=== PATIENT | male | born 1980 | race African-American/Black ===

== ENCOUNTER 2018-10-16 16:36 | Emergency (ER) | payer SELFPAY ==
[~2018-10-16] VITALS: Ht 177.8 cm; Wt 100.0 kg
[2018-10-16 16:44] VITALS: Ht 177.8 cm; Wt 100.0 kg
[2018-10-16 19:07] LABS: BASOPHILS 0.2 % (0-2); EOSINOPHILS 6.6 % (0-7); HEMATOCRIT 42.6 % (42.0-54.0); HEMOGLOBIN 15.2 g/dL (13.5-17.5); LYMPHOCYTES 16.3 % (15-50); MCH 30.9 pg (26.0-34.0); MCHC 35.7 g/dL (31.0-37.0); MCV 86.6 fL (80.0-100.0); MEAN PLATELET VOLUME 9.9 fL (7.4-10.4); MONOCYTES 17.3 % (2-11); NEUTROPHILS 58.6 % (40-80); RBC 4.92 10x6/uL (4.20-6.10); RDW 11.3 % (11.5-14.5)
[2018-10-16 19:08] LABS: PLATELET COUNT 312 10x3/uL (130-400)
[2018-10-16 19:26] LABS: ALBUMIN 2.6 g/dL (3.4-5.0); ALKALINE PHOSPHATASE 52 U/L (46-116); ALT (SGPT) 43 U/L (10-68); BILIRUBIN - TOTAL 0.39 mg/dL (0.2-1.3); CALC OSMOLALITY 263 mosm/kg (275-300); CALCIUM 8.8 mg/dL (8.5-10.1); CARBON DIOXIDE 25.8 mmol/L (21.0-32.0); CHLORIDE - SERUM 98 mmol/L (98-107); CREATININE - SERUM 0.8 mg/dL (0.6-1.3); GLUCOSE 81 mg/dL (74-106); POTASSIUM - SERUM 4.3 mmol/L (3.5-5.1); SODIUM 133 mmol/L (136-145); UREA NITROGEN 11 mg/dL (7-18); eGFR NON AFRICAN AMERICAN > 90 mL/min (90-120)
[2018-10-16 20:23] LABS: TROPONIN-I < 0.017 ng/mL (0.000-0.060)
[2018-10-16 20:24] LABS: PRO BNP 8 pg/mL (0-125)
[2018-10-16] MEDS ORDERED: OMNICEF300 MG PO (21:58)
[2018-10-16] MEDS ORDERED: VENTOLIN HFA18 GM INH (21:58)
[2018-10-16] MEDS ORDERED: ZPAK PO (21:58)
[2018-10-16 22:30] VITALS: BP 120/84
== END 2018-10-16 22:30 | disposition home or self-care (01) ==
LOC: D.ER 16:36
PROVIDERS: Emergency Medicine; Family Medicine
DX: J18.9 Pneumonia, unspecified organism (principal); R09.89 Other specified symptoms and signs involving the circulatory and respiratory systems; F17.200 Nicotine dependence, unspecified, uncomplicated

== ENCOUNTER 2019-03-27 14:10 | Emergency (ER) | payer SELFPAY ==
[~2019-03-27 14:10] MED LIST: OMNICEF300 MG PO; VENTOLIN HFA18 GM INH; ZPAK PO
[2019-03-27 14:36] VITALS: BMI 31.6
[2019-03-27 15:21] LABS: BASOPHILS 0.2 % (0-2); EOSINOPHILS 14.3 % (0-7); HEMATOCRIT 40.1 % (42.0-54.0); HEMOGLOBIN 14.5 g/dL (13.5-17.5); IMMATURE GRANULOCYTES 0.7 % (0-5); LYMPHOCYTES 7.4 % (15-50); MCH 30.7 pg (26.0-34.0); MCHC 36.2 g/dL (31.0-37.0); MEAN PLATELET VOLUME 9.9 fL (7.4-10.4); MONOCYTES 7.6 % (2-11); NEUTROPHILS 69.8 % (40-80); RBC 4.72 10x6/uL (4.20-6.10); RDW 11.4 % (11.5-14.5); WBC 5.8 10x3/uL (4.8-10.8)
[2019-03-27 15:28] LABS: PLATELET COUNT 215 10x3/uL (130-400)
[2019-03-27 15:32] LABS: ALKALINE PHOSPHATASE 71 U/L (46-116); ALT (SGPT) 57 U/L (10-68); BILIRUBIN - TOTAL 0.34 mg/dL (0.2-1.3); CALC OSMOLALITY 273 mosm/kg (275-300); CALCIUM 8.8 mg/dL (8.5-10.1); CARBON DIOXIDE 30.9 mmol/L (21.0-32.0); CHLORIDE - SERUM 100 mmol/L (98-107); CREATININE - SERUM 0.9 mg/dL (0.6-1.3); GLUCOSE 96 mg/dL (74-106); POTASSIUM - SERUM 3.1 mmol/L (3.5-5.1); PROTEIN - SERUM 8.1 g/dL (6.4-8.2); SODIUM 138 mmol/L (136-145); UREA NITROGEN 8 mg/dL (7-18); eGFR NON AFRICAN AMERICAN > 90 mL/min (90-120)
[2019-03-27 16:33] VITALS: BP 122/78
[2019-05-10 12:30] VITALS: BMI 25.2
== END 2019-03-27 16:34 | disposition home or self-care (01) ==
LOC: D.ER 14:10
PROVIDERS: Family Medicine
DX: H10.33 Unspecified acute conjunctivitis, bilateral (principal)

== ENCOUNTER 2019-04-07 18:28 | Emergency (ER) | payer SELFPAY ==
[~2019-04-07] VITALS: Ht 177.8 cm; Wt 100.0 kg
[2019-04-07 18:33] VITALS: Ht 177.8 cm; Wt 100.0 kg
[2019-04-07] MEDS ORDERED: ZYRTEC10 MG PO (21:34)
[2019-04-07] MEDS ORDERED: POLYTRIM EYE DR10 ML EACH EYE (21:34)
[2019-04-07 22:09] VITALS: BP 134/81
== END 2019-04-07 22:11 | disposition home or self-care (01) ==
LOC: D.ER 18:28
DX: J30.9 Allergic rhinitis, unspecified (principal); H10.33 Unspecified acute conjunctivitis, bilateral

== ENCOUNTER 2019-04-28 18:07 | Emergency (ER) | payer SELFPAY ==
[~2019-04-28] VITALS: Ht 177.8 cm; Wt 100.0 kg
[~2019-04-28 18:07] MED LIST changes: +POLYTRIM EYE DR10 ML EACH EYE; +ZYRTEC10 MG PO
[2019-04-28 18:18] VITALS: Ht 177.8 cm; Wt 100.0 kg
[2019-04-28] MEDS ORDERED: PHENERGAN DM SYR5 ML PO (19:47)
[2019-04-28] MEDS ORDERED: VIBRAMYCIN 100100 MG PO (19:47)
[2019-04-28] MEDS ORDERED: VOLTAREN75 MG PO (19:47)
[2019-04-28 20:45] VITALS: BP 136/84
== END 2019-04-28 20:50 | disposition home or self-care (01) ==
LOC: D.ER 18:07
DX: L03.314 Cellulitis of groin (principal); J06.9 Acute upper respiratory infection, unspecified

== ENCOUNTER 2019-05-07 19:18 | Inpatient (IN) | payer MEDICAID ==
[~2019-05-07] VITALS: Ht 177.8 cm; Wt 85.9 kg
[~2019-05-07 19:18] MED LIST changes: +PHENERGAN DM SYR5 ML PO; +VIBRAMYCIN 100100 MG PO; +VOLTAREN75 MG PO
--- NOTE | 2019-05-07 20:00 | NUR ---
PT STATES HE FEEL BETTER AFTER THE UPDRAFT, CALL LIGHT WITHIN REACH, FAMILY AT BEDSIDE. PT IS WITHOUT DISTRESS AT THIS TIME.
[2019-05-07 20:37] LABS: BASOPHILS 0.1 % (0-2); EOSINOPHILS 0.8 % (0-7); HEMOGLOBIN 12.2 g/dL (13.5-17.5); IMMATURE GRANULOCYTES 1.2 % (0-5); LYMPHOCYTES 7.2 % (15-50); MCHC 33.9 g/dL (31.0-37.0); MCV 85.5 fL (80.0-100.0); MEAN PLATELET VOLUME 9.1 fL (7.4-10.4); MONOCYTES 8.3 % (2-11); NEUTROPHILS 82.4 % (40-80); RBC 4.21 10x6/uL (4.20-6.10); RDW 11.8 % (11.5-14.5); WBC 7.6 10x3/uL (4.8-10.8)
[2019-05-07 20:39] LABS: PLATELET COUNT 287 10x3/uL (130-400)
[2019-05-07 20:44] LABS: APTT 34.5 SECONDS (22.8-39.4); INR 1.24 (0.85-1.17)
[2019-05-07 20:45] LABS: PLATELET ESTIMATE NORMAL
[2019-05-07 20:46] LABS: D-DIMER-QUANTITATIVE 1.04 ug/mLFEU (0.20-0.54)
[2019-05-07 21:05] LABS: ALBUMIN 2.3 g/dL (3.4-5.0); ALKALINE PHOSPHATASE 64 U/L (46-116); ALT (SGPT) 56 U/L (10-68); BILIRUBIN - TOTAL 0.44 mg/dL (0.2-1.3); CALC OSMOLALITY 273 mosm/kg (275-300); CALCIUM 8.4 mg/dL (8.5-10.1); CHLORIDE - SERUM 103 mmol/L (98-107); CREATININE - SERUM 0.8 mg/dL (0.6-1.3); GLUCOSE 98 mg/dL (74-106); POTASSIUM - SERUM 4.1 mmol/L (3.5-5.1); SODIUM 137 mmol/L (136-145); UREA NITROGEN 12 mg/dL (7-18); eGFR NON AFRICAN AMERICAN > 90 mL/min (90-120)
[2019-05-07 21:09] LABS: CKMB 0.2 U/L (0.0-3.6); CREATINE KINASE 68 UL (21-232); PRO BNP 34 pg/mL (0-125); TROPONIN-I < 0.017 ng/mL (0.000-0.060)
--- NOTE | 2019-05-07 22:28 | NUR ---
ARIVES VIA STRETCHER BUT AMBULATES TO BED GATE IS STEADY PT UNABLE TO COME OFF OF NONREBREATHER FROM ER STATE HX OF BRONCHITIS BUT NO OTHER ISSUES RESP AT ABOUT 28 BUT DENIES SOB WITH MASK IN PLACE PT SKIN IS WARM AND DRY AND LCTA BOWEL SOUNDS X4 KIMMY BED IS LOW AND LOCKED AND CALL LIGHT HAS BEEN PROVIDED FAMILY IS ALSO WITH PT
--- NOTE | 2019-05-08 01:23 | NUR ---
ADMIT ASSESSMENT COMPLETE. PT RESTING IN BED WITH FAMILY AT BED SIDE. PT ON A NON REBREATHER, STATES THAT ER ATTEMPTED TO TAKE IT OFF BUT HIS NUMBERS WENT UP. WILL SPEAK TO NURSE IN CHARGE OF PT REGARDING NON REBREATHER. PT IS AAO, DENIES ANY WEAKNESS BUT DOES HAVE SOB WHEN MOVING AROUND. PT VERBALIZED UNDERSTANDING TO CALL FOR ASSIST TO PREVENT FALLS. PT HAS LR INFUSING TO RIGHT AC PIV 18 SWAB CAPS PLACED. S1S2 RRR, MONITOR NOTED PT IS [address] PT COUGH AT TIMES, NON PRODUCTIVE RML EXHALE WHEEZE, RLL AND LLL DIMINISHED. PT WILL CALL FOR ASSIST WHEN NEEDED. WILL CPOC
[2019-05-08 01:42] VITALS: BP 126/84; BMI 27.2
[2019-05-08 04:30] VITALS: BP 123/85
[2019-05-08 05:04] LABS: BASOPHILS 0 % (0-2); EOSINOPHILS 0 % (0-7); HEMATOCRIT 34.3 % (42.0-54.0); IMMATURE GRANULOCYTES 1.2 % (0-5); LYMPHOCYTES 9.7 % (15-50); MCH 29.7 pg (26.0-34.0); MCV 84.9 fL (80.0-100.0); MEAN PLATELET VOLUME 9.2 fL (7.4-10.4); MONOCYTES 1.9 % (2-11); NEUTROPHILS 87.2 % (40-80); PLATELET COUNT 302 10x3/uL (130-400); RBC 4.04 10x6/uL (4.20-6.10); RDW 11.7 % (11.5-14.5); WBC 6.8 10x3/uL (4.8-10.8)
[2019-05-08 05:17] LABS: ALKALINE PHOSPHATASE 61 U/L (46-116); ALT (SGPT) 59 U/L (10-68); BILIRUBIN - TOTAL 0.34 mg/dL (0.2-1.3); CALC OSMOLALITY 273 mosm/kg (275-300); CALCIUM 8.5 mg/dL (8.5-10.1); CARBON DIOXIDE 26.4 mmol/L (21.0-32.0); CHLORIDE - SERUM 102 mmol/L (98-107); CREATININE - SERUM 0.6 mg/dL (0.6-1.3); POTASSIUM - SERUM 4.3 mmol/L (3.5-5.1); PROTEIN - SERUM 7.4 g/dL (6.4-8.2); SODIUM 136 mmol/L (136-145); UREA NITROGEN 9 mg/dL (7-18); eGFR NON AFRICAN AMERICAN > 90 mL/min (90-120)
[2019-05-08 05:23] LABS: GLUCOSE 158 mg/dL (74-106)
--- NOTE | 2019-05-08 08:05 | NUR ---
PATIENT IS ALERT AN ORIENTED. HE IS SITTING UP IN BED AND REQUEST A URINAL. HE IS CURRENTLY ORDERED BEDREST. HE HAS A NON REBREATHER ON AND HAS HAD 100%O2 SATURATION. HE MAY NEED TO BE WEANED OFF THE REBREATHER, HOWEVER, I WAS TOLD IN REPORT THAT WHEN THEY TRIED TAKEING HIM OFF THE MASK HIS RESPITATIONS STEADILY INCREASE. WHEN HE IS DONE USING THE URINAL, I WILL COLLECT A URINE SAMPLE FOR LAB.
[2019-05-08 08:06] VITALS: BP 120/79
[2019-05-08 09:19] LABS: APPEARANCE CLEAR (CLEAR); BILIRUBIN NEGATIVE (NEGATIVE); COLOR YELLOW (YELLOW); GLUCOSE NEGATIVE (NEGATIVE); KETONE NEGATIVE (NEGATIVE); NITRITE NEGATIVE (NEGATIVE); PROTEIN NEGATIVE (NEGATIVE); SPECIFIC GRAVITY 1.015 (1.005-1.020); UROBILINOGEN NORMAL (NORMAL)
[2019-05-08 12:26] VITALS: BP 121/84
[2019-05-08 12:28] LABS: % SATURATION 14 % (15-55); IRON 23 ug/dl (35-150); TOTAL IRON BIND CAPACITY 161 ug/dl (260-445); UNSAT IRON BIND CAPACITY 138 ug/dl (150-375)
[2019-05-08 14:26] LABS: UDS - AMPHET NEGATIVE QUAL (NEGATIVE); UDS - BARB NEGATIVE QUAL (NEGATIVE); UDS - BENZO NEGATIVE QUAL (NEGATIVE); UDS - COCAINE NEGATIVE QUAL (NEGATIVE); UDS - OPIATE NEGATIVE QUAL (NEGATIVE); UDS - PCP NEGATIVE QUAL (NEGATIVE); UDS - THC NEGATIVE QUAL (NEGATIVE)
[2019-05-08 15:59] VITALS: BP 120/86
--- NOTE | 2019-05-08 19:52 | NUR ---
EVENING ROUNDS COMPLETED. REPORT RECEIVED. PT SITTING UP IN BED WITH EYES OPEN, RR EVEN AND UNLABORED. BED IN LOW POSITION. NO S/S OF DISTRESS NOTED. OXYGEN IN PLACE AT 12 LITERS BY HF NC. INTRODUCED SELF TO PT. PT DENIES FURTHER NEEDS AT THIS TIME. ORDERED ABX INFUSING THROUGH RT AC PIV. CALL LIGHT IN REACH. WILL CTM.
[2019-05-08 20:00] VITALS: BP 134/88
[2019-05-09] VITALS: BP 137/84
--- NOTE | 2019-05-09 01:55 | NUR ---
I have reviewed this patient and I concur with the Shift Assessment completed by the Licensed Practical Nurse today this shift.
[2019-05-09 04:30] VITALS: BP 113/71
[2019-05-09 06:20] LABS: C-REACTIVE PROTEIN 5.1 mg/dL (0.0-0.9); CALC OSMOLALITY 278 mosm/kg (275-300); CALCIUM 8.6 mg/dL (8.5-10.1); CARBON DIOXIDE 24.3 mmol/L (21.0-32.0); CHLORIDE - SERUM 104 mmol/L (98-107); CREATININE - SERUM 0.7 mg/dL (0.6-1.3); GLUCOSE 165 mg/dL (74-106); LDH 380 U/L (85-227); POTASSIUM - SERUM 3.4 mmol/L (3.5-5.1); SODIUM 138 mmol/L (136-145); UREA NITROGEN 11 mg/dL (7-18); eGFR NON AFRICAN AMERICAN > 90 mL/min (90-120)
[2019-05-09 06:24] LABS: HEMOGLOBIN 12.2 g/dL (13.5-17.5); MCHC 33.9 g/dL (31.0-37.0); MCV 85.5 fL (80.0-100.0); MEAN PLATELET VOLUME 9.6 fL (7.4-10.4); PLATELET COUNT 325 10x3/uL (130-400); RBC 4.21 10x6/uL (4.20-6.10); RDW 11.8 % (11.5-14.5); WBC 20.1 10x3/uL (4.8-10.8)
--- NOTE | 2019-05-09 06:26 | NUR ---
3.4 SERUM POTASSIUM TREATED ORDERED
[2019-05-09 08:00] VITALS: BP 128/92
[2019-05-09 08:22] LABS: LYMPHOCYTES 3 % (15-50); MONOCYTES 4 % (2-11); NEUTROPHILS 90 % (40-80); PLATELET ESTIMATE NORMAL; PLATELET MORPHOLOGY GIANT PLTS PRESENT
[2019-05-09 08:23] LABS: POIKILOCYTOSIS 1+
[2019-05-09 11:50] VITALS: BP 125/72
--- NOTE | 2019-05-09 17:31 | NUR ---
ALERT AND ORIENTED X4. SITTING UP IN BED. OXYMIZER INCREASE TO 12L FOR O2 SAT 90%. DYSPNEA ON EXCERTION. USES URINAL. OOB WITH ASSISTANCE DUE TO BAHENA. DENIES ANY NEEDS AT THIS TIME. CONTINUE PLAN OF CARE AND SAFETY PRECAUTIONS.
--- NOTE | 2019-05-09 19:27 | NUR ---
EVENING ROUNDS COMPLETED. REPORT RECEIVED. PT SITTING UP IN BED WITH EYES OPEN, RR EVEN AND UNLABORED. OXYGEN AT 10 LITERS BY HIGH FLOW NASAL CANNULA. BED IN LOW POSITION. NO S/S OF DISTRESS NOTED. INTRODUCED SELF TO PT. PT DENIES FURTHER NEEDS AT THIS TIME. RAC PIV INFUSING NS ORDERED. CALL LIGHT IN REACH. WILL CTM.
[2019-05-09 20:00] VITALS: BP 124/78
[2019-05-10] VITALS: BP 119/80
--- NOTE | 2019-05-10 00:03 | NUR ---
I have reviewed this patient and I concur with the Shift Assessment completed by the Licensed Practical Nurse today this shift.
--- NOTE | 2019-05-10 02:47 | NUR ---
PT RESTING QUIETLY IN BED WITH EYES CLOSED, RR EVEN AND UNLABORED. BED IN LOW POSITION. NO S/S OF DISTRESS NOTED. CALL LIGHT IN REACH. WILL CTM.
[2019-05-10 04:30] VITALS: BP 109/78
[2019-05-10 06:44] LABS: BASOPHILS 0 % (0-2); EOSINOPHILS 1.2 % (0-7); HEMATOCRIT 36.1 % (42.0-54.0); HEMOGLOBIN 12.3 g/dL (13.5-17.5); IMMATURE GRANULOCYTES 0.7 % (0-5); LYMPHOCYTES 12.4 % (15-50); MCH 29.1 pg (26.0-34.0); MCHC 34.1 g/dL (31.0-37.0); MCV 85.3 fL (80.0-100.0); MEAN PLATELET VOLUME 9.5 fL (7.4-10.4); MONOCYTES 12.2 % (2-11); NEUTROPHILS 73.5 % (40-80); PLATELET COUNT 324 10x3/uL (130-400); RBC 4.23 10x6/uL (4.20-6.10)
[2019-05-10 06:47] LABS: WBC 8.2 10x3/uL (4.8-10.8)
[2019-05-10 06:48] LABS: CALCIUM 8.5 mg/dL (8.5-10.1); CARBON DIOXIDE 26.2 mmol/L (21.0-32.0); CHLORIDE - SERUM 105 mmol/L (98-107); CREATININE - SERUM 0.8 mg/dL (0.6-1.3); POTASSIUM - SERUM 3.6 mmol/L (3.5-5.1); SODIUM 140 mmol/L (136-145); VANCOMYCIN - TROUGH 3.7 ug/mL (10.0-20.0); eGFR NON AFRICAN AMERICAN > 90 mL/min (90-120)
[2019-05-10 06:49] LABS: CALC OSMOLALITY 275 mosm/kg (275-300); GLUCOSE 86 mg/dL (74-106); UREA NITROGEN 8 mg/dL (7-18)
[2019-05-10 08:55] VITALS: BP 112/78
[2019-05-10 12:30] VITALS: Ht 177.8 cm; Wt 85.9 kg
--- NOTE | 2019-05-10 17:07 | NUR ---
ALERT AND ORIENTED X4. RESTING IN BED. CONSENTS FOR BRONCH SIGNED ON CHART. O2 SAT 92% @ 11L HFNC. FAMILY AT BEDSIDE. DENIES ANY NEEDS AT THIS TIME. CONTINUE PLAN OF CARE AND SAFETY PRECAUTIONS.
[2019-05-10 18:15] VITALS: BP 129/91
--- NOTE | 2019-05-10 19:14 | NUR ---
AWKE AND ALERT IN BED SKIN WARM AND DRY BOWEL SOUNDS X4 AND LUNGS ARE VERY DEMINISHED IN ALL BASES HIGH FLOW AT TEN LITERS IS IN PLACE SPOKE TO PT ABOUT PROCEDURE IN AM AND BEING NPO AFTER MIDNIGHT
[2019-05-10 20:00] VITALS: BP 135/75
[2019-05-11] VITALS (7 sets, daily range): BP systolic 106–133; BP diastolic 72–88
[2019-05-11 05:11] LABS: BASOPHILS 0.1 % (0-2); EOSINOPHILS 4.5 % (0-7); HEMATOCRIT 36.1 % (42.0-54.0); HEMOGLOBIN 12.6 g/dL (13.5-17.5); IMMATURE GRANULOCYTES 1.5 % (0-5); LYMPHOCYTES 10.6 % (15-50); MCH 29.6 pg (26.0-34.0); MCHC 34.9 g/dL (31.0-37.0); MCV 84.7 fL (80.0-100.0); MEAN PLATELET VOLUME 9.2 fL (7.4-10.4); MONOCYTES 10.6 % (2-11); NEUTROPHILS 72.7 % (40-80); PLATELET COUNT 319 10x3/uL (130-400); RBC 4.26 10x6/uL (4.20-6.10)
--- NOTE | 2019-05-11 05:12 | NUR ---
I have reviewed this patient and I concur with the Shift Assessment completed by the Licensed Practical Nurse today this shift.
[2019-05-11 05:36] LABS: CALC OSMOLALITY 275 mosm/kg (275-300); CALCIUM 8.3 mg/dL (8.5-10.1); CARBON DIOXIDE 26.7 mmol/L (21.0-32.0); CHLORIDE - SERUM 103 mmol/L (98-107); CREATININE - SERUM 0.7 mg/dL (0.6-1.3); GLUCOSE 85 mg/dL (74-106); MAGNESIUM - SERUM 1.9 mg/dL (1.8-2.4); PHOSPHOROUS 3.8 mg/dL (2.5-4.9); SODIUM 139 mmol/L (136-145); UREA NITROGEN 9 mg/dL (7-18); eGFR NON AFRICAN AMERICAN > 90 mL/min (90-120)
--- NOTE | 2019-05-11 09:57 | NUR ---
ALERT AND ORIENTED X4. TAKEN TO PROCEDURE VIA BED.
[2019-05-11 11:10] LABS: ANA REFLEX - DIRECT Negative (Negative)
--- NOTE | 2019-05-11 11:25 | NUR ---
ALERT AND ORIENTED X4. ARRIVE BACK TO ROOM VIA BED FROM PROCEDURE. O2 SAT 73 ON HFNC. NONREBREATHER MASK ON O2 SAT 92%. BP-115/79, HR-109, R-20. REMAIN NPO FOR NEXT 2 HOURS. CONTINUE PLAN OF CARE AND SAFETY PRECAUTIONS.
[2019-05-11 14:09] LABS: HIV AB INTERPRETATION HIV-1 Positive (())
--- NOTE | 2019-05-11 17:34 | NUR ---
ALERT AND ORIENTED X4. RESTING IN BED. O2 94% WITH HFNC 15L. TRANSFER TO ICU PER . CALLED TO ICU. TRANSFER TO 2302.
--- NOTE | 2019-05-11 17:49 | MORECARE ---
CASE MANAGEMENT DISCHARGE SUMMARY PATIENT: MARTHA LEES UNIT: [id number] ADM DATE: 05/07/19 AGE: 38 : 80 SEX: M ROOM/BED: D.6467 AUTHOR: SALINA,DOC PHYSICIAN: REFERRING PHYSICIAN: JUAN ZULUAGA MD DATE OF SERVICE: 05/11/19 Discharge Plan Patient Name: MARTHA LEES Facility: [facility]:[place] : 1980 Planned Disposition: Home Anticipated Discharge Date: Discharge Date: Expected LOS: Initial Reviewer: [email or web address] Initial Review Date: 05/11/2019 Generated: 05/11/19 6:49 pm Comments DCP- Discharge Planning Updated by [email or web address]: Winter Martinez on 05/11/19 4:[address] Patient Name: MARTHA LEES Admission Status: ER Accout number: [id number] Admission Date: 05-07-2019 : 1980 Admission Diagnosis: Attending: JUAN ZULUAGA Current LOS: 4 Anticipated DC Date: Planned Disposition: Home Primary Insurance: MEDICAID [place] PENDING Discharge Planning Comments: CM met with patient and his mother (Parag) at bedside after explaining CM role and obtaining verbal consent. Patient lives at home with his mother and plans to return there upon discharge. Patient feels this would be a safe discharge. CM discussed availability / needs of home health and medical equipment. Patient denies any discharge needs at this time. Patient states he will have his family drive him home upon discharge. CM will continue to follow and assist as needed with discharge planning / needs. Account Support Analyst: Winter Martinez DCPIA - Discharge Planning Initial Assessment Updated by [email or web address]: Winter Martinez on 05/11/19 5:45 pm * Is the patient Alert and Oriented? Yes * How many steps to enter\exit or inside your home? * PCP NO PCP * Pharmacy [facility] * Preadmission Environment Home with Family * ADLs Independent * Equipment None * List name and contact numbers for known caregivers / representatives who currently or will assist patient after discharge: PARAG LEES - [phone] * Verbal permission to speak to the caregivers and representatives has been obtained from the patient. Yes * Community resources currently utilized None * Additional services required to return to the preadmission environment? No * Can the patient safely return to the preadmission environment? Yes * Has this patient been hospitalized within the prior 30 days at any hospital? No Patient Name: MARTHA LEES Page [phone] at 1749 All edits/amendments must be made on the electronic document DICTATION DATE: 05/11/191748 REMEDIAL READING TEACHER: CYNTHIA 05/11/191748 RPT#: [id number] DC DATE: STATUS: ADM IN [facility] [address] [place] [address] END OF REPORT
--- NOTE | 2019-05-11 18:00 | NUR ---
PT RECEIVED VIA BED. FAMILY AT BEDSIDE GIVEN UDPATE. PT DENIES NEEDS. GIVEN WATER FOR COMFORT VSS WILL CONTINUE TO MONITOR
--- NOTE | 2019-05-11 19:00 | NUR ---
REPORT RECEIVED, SHIFT ASSESSMENT COMPLETE SEE FLOW SHEET, PT AAOx4, DENIES PAIN OR NEEDS, SINUS TACH ON CM, OTHER VSS, RT AC PIV INFUSING MEDS PER MAR/ORDERS, WILL CONTINUE TO ASSESS
--- NOTE | 2019-05-11 21:00 | NUR ---
CALLED ICU, UPDATE GIVEN, NO NEW ORDERS RECEIVED
--- NOTE | 2019-05-11 23:00 | NUR ---
REASSESSMENT COMPLETE SEE FLOW SHEET FOR FURTHER, PT DENIES NEEDS OR PAIN, VSS, WILL CONTINUE TO MONITOR
[2019-05-12] VITALS (19 sets, daily range): BP systolic 102–127; BP diastolic 70–85
[2019-05-12 03:28] LABS: BASOPHILS 0.1 % (0-2); EOSINOPHILS 4.7 % (0-7); HEMATOCRIT 33.4 % (42.0-54.0); HEMOGLOBIN 11.6 g/dL (13.5-17.5); IMMATURE GRANULOCYTES 2.4 % (0-5); MCH 29.3 pg (26.0-34.0); MCHC 34.7 g/dL (31.0-37.0); MCV 84.3 fL (80.0-100.0); MEAN PLATELET VOLUME 9.3 fL (7.4-10.4); MONOCYTES 10.6 % (2-11); NEUTROPHILS 71.2 % (40-80); PLATELET COUNT 291 10x3/uL (130-400); RBC 3.96 10x6/uL (4.20-6.10)
[2019-05-12 03:29] LABS: WBC 10.2 10x3/uL (4.8-10.8)
[2019-05-12 03:40] LABS: CALC OSMOLALITY 268 mosm/kg (275-300); CALCIUM 8.6 mg/dL (8.5-10.1); CARBON DIOXIDE 26.3 mmol/L (21.0-32.0); CHLORIDE - SERUM 100 mmol/L (98-107); CREATININE - SERUM 0.7 mg/dL (0.6-1.3); GLUCOSE 99 mg/dL (74-106); MAGNESIUM - SERUM 2.1 mg/dL (1.8-2.4); PHOSPHOROUS 3.1 mg/dL (2.5-4.9); POTASSIUM - SERUM 3.6 mmol/L (3.5-5.1); SODIUM 135 mmol/L (136-145); UREA NITROGEN 10 mg/dL (7-18); eGFR NON AFRICAN AMERICAN > 90 mL/min (90-120)
--- NOTE | 2019-05-12 07:10 | NUR ---
REPORT RECEIVED. ASSESSMENT COMPLETE PER FLOW SHEET. VSS. NO NEW CHANGES PT GIVEN BREAKFAST. ATE 75% WILL CONTINUE TO MONITOR
--- NOTE | 2019-05-12 08:14 | NUR ---
FAMILY AT BEDSIDE GIVEN UDPATE.
--- NOTE | 2019-05-12 08:43 | NUR ---
Nutrition follow-up: Pt s/p bronch 05/11. Receiving a regular diet with po intake ~75% average of meals Labs reviewed Wt: 190# Pt is now in ICU RDN following.
--- NOTE | 2019-05-12 09:20 | NUR ---
DR JANSEN AT BEDSIDE GIVNE UPDATE NEW ORDERS RECIVED
--- NOTE | 2019-05-12 11:00 | NUR ---
REASSESSMENT COMPLETE PER FLOW SHEET. VSS. NO NEW CHANGES WILL CONTNIUE TO MONITOR
--- NOTE | 2019-05-12 13:00 | NUR ---
FAMILY AT BEDSIDE GIVEN UDPATE PT DENIES NEEDS
--- NOTE | 2019-05-12 15:00 | NUR ---
REASSESSMENT COMPLETE PER FLOW SHEET VSS NO NEW CHANGES WILL CONTINUE TO MONITOR
[2019-05-12 15:09] LABS: FUNGUS STAIN Final report (())
--- NOTE | 2019-05-12 16:58 | NUR ---
GIVEN DINNER TRAY. DENIES NEEDS VSS WILL CONTINUE TO MONITOR
[2019-05-12 17:08] LABS: ANCA - ANTIMYELOPEROXIDASE <9.0 U/mL (0.0-9.0); ANCA - ANTIPROTEINASE 3 <3.5 U/mL (0.0-3.5); ANCA - ATYPICAL <1:20 titer (Neg:<1:20); ANCA - CYTOPLASMIC <1:20 titer (Neg:<1:20); ANCA - PERINUCLEAR <1:20 titer (Neg:<1:20)
[2019-05-12 18:08] LABS: ACID FAST SMEAR Negative (()); AFB SPECIMEN PROCESSING Concentration (())
--- NOTE | 2019-05-12 19:00 | NUR ---
REPORT RECEIVED, SHIFT ASSESSMENT COMPLET PER FLOW SHEET, PT AAOx4 DENIES PAIN OR NEEDS AT THIS TIME, NSR ON CM OTHER VSS, REPOSITIONS SELF IN BED FOR COMFORT, WILL CONTINUE TO ASSESS
--- NOTE | 2019-05-12 23:00 | NUR ---
REASSESSMENT COMPLET SEE FLOW SHEET FOR FURTHER, NO ACUTE S/S OF DISTRESS NOTED, VSS, REPOSITIONED FOR COMFORT, CUP OF WATER GIVEN PER REQUEST, WILL CONTINUE TO MONITOR
[2019-05-13] VITALS (12 sets, daily range): BP systolic 115–144; BP diastolic 76–93
--- NOTE | 2019-05-13 03:00 | NUR ---
REASSESSMENT COMPLETE SEE FLOW SHEET FOR FURTHER, PT DENIES PAIN OR NEEDS, AAOx4, NO ACUTE S/S OF DISTRESS, VSS, NSR ON CM, WILL CONTINUE TO MONITOR
[2019-05-13 03:49] LABS: BASOPHILS 0.1 % (0-2); EOSINOPHILS 0 % (0-7); HEMATOCRIT 33.8 % (42.0-54.0); IMMATURE GRANULOCYTES 2.1 % (0-5); LYMPHOCYTES 8.3 % (15-50); MCH 29.6 pg (26.0-34.0); MCHC 35.5 g/dL (31.0-37.0); MCV 83.3 fL (80.0-100.0); MEAN PLATELET VOLUME 9.4 fL (7.4-10.4); MONOCYTES 3.6 % (2-11); NEUTROPHILS 85.9 % (40-80); RBC 4.06 10x6/uL (4.20-6.10); RDW 11.8 % (11.5-14.5); WBC 8.6 10x3/uL (4.8-10.8)
[2019-05-13 03:50] LABS: PLATELET COUNT 352 10x3/uL (130-400)
[2019-05-13 03:58] LABS: CALC OSMOLALITY 265 mosm/kg (275-300); CALCIUM 8.6 mg/dL (8.5-10.1); CARBON DIOXIDE 24.2 mmol/L (21.0-32.0); CHLORIDE - SERUM 100 mmol/L (98-107); CREATININE - SERUM 0.6 mg/dL (0.6-1.3); GLUCOSE 137 mg/dL (74-106); MAGNESIUM - SERUM 2.1 mg/dL (1.8-2.4); PHOSPHOROUS 3.1 mg/dL (2.5-4.9); POTASSIUM - SERUM 3.7 mmol/L (3.5-5.1); SODIUM 132 mmol/L (136-145); UREA NITROGEN 10 mg/dL (7-18); eGFR NON AFRICAN AMERICAN > 90 mL/min (90-120)
--- NOTE | 2019-05-13 06:17 | NUR ---
PT REFUSED BATH STATED HE WOULD LIKE TO COMPLETE LATER IN DAY SO HE CAN REST.
--- NOTE | 2019-05-13 07:00 | NUR ---
PATIENT RESTING. VSS. SHIFT ASSESSMENT COMPLETED. WILL CONTINUE TO MONITOR.
--- NOTE | 2019-05-13 09:30 | NUR ---
DR LANGE AT BEDSIDE. UPDATE GIVEN.
--- NOTE | 2019-05-13 11:00 | NUR ---
DR PATEL AT BEDSIDE. UPDATE GIVE.
--- NOTE | 2019-05-13 13:00 | NUR ---
RECIEVED FROM ICU. NO SIGNS OF DISTRESS. IV TO RIGHT FORARM PATENT NO REDNESS OR TENDERNESS. ON 6L NC. DENIES ANY OTHER NEED AT THIS TIME. CALL LIGHT IN REACH. BED LOW POSITION. NO FAMILY AT BEDSIDE AT THIS TIME.
--- NOTE | 2019-05-13 13:09 | NUR ---
PATIENT REFUSED CHG BATH.
--- NOTE | 2019-05-13 14:00 | NUR ---
REPORT CALLED TO RENATO GRANT
--- NOTE | 2019-05-13 19:40 | NUR ---
PT SITTING ON SIDE OF BED WITHOUT DISTRESS. ALERT AND ORIENTED. DENIES PAIN. IV RIGHT FA INFUSING NS @ 125. O2 6L/NC. LUNG SOUNDS DIMINISHED IN LOWER LOBES. PT STATES HE GET SOB WITH EXERTION AND FEEL WEAK FROM LYING IN BED THE LAST WEEK. DENIES NEEDS AT THIS TIME. ENCOURAGED TO CALL FOR ASSISTANCE. CL IN REACH, WILL CTM
[2019-05-14] VITALS: BP 121/86
--- NOTE | 2019-05-14 05:00 | NUR ---
PT LYING IN BED RESTING WITHOUT DISTRESS, DENIES NEEDS. CL IN REACH, WILL CTM
[2019-05-14 06:02] LABS: BASOPHILS 0.1 % (0-2); EOSINOPHILS 0 % (0-7); HEMATOCRIT 31.2 % (42.0-54.0); HEMOGLOBIN 11.2 g/dL (13.5-17.5); IMMATURE GRANULOCYTES 3.4 % (0-5); LYMPHOCYTES 6.4 % (15-50); MCH 29.9 pg (26.0-34.0); MCHC 35.9 g/dL (31.0-37.0); MCV 83.2 fL (80.0-100.0); MEAN PLATELET VOLUME 9.4 fL (7.4-10.4); MONOCYTES 7.8 % (2-11); NEUTROPHILS 82.3 % (40-80); PLATELET COUNT 370 10x3/uL (130-400); RBC 3.75 10x6/uL (4.20-6.10); RDW 12.1 % (11.5-14.5)
[2019-05-14 06:03] LABS: WBC 18.7 10x3/uL (4.8-10.8)
[2019-05-14 06:14] LABS: ALBUMIN 1.9 g/dL (3.4-5.0); ALKALINE PHOSPHATASE 49 U/L (46-116); ALT (SGPT) 46 U/L (10-68); BILIRUBIN - TOTAL 0.21 mg/dL (0.2-1.3); CALC OSMOLALITY 268 mosm/kg (275-300); CALCIUM 8.4 mg/dL (8.5-10.1); CHLORIDE - SERUM 103 mmol/L (98-107); CREATININE - SERUM 0.6 mg/dL (0.6-1.3); GLUCOSE 116 mg/dL (74-106); PHOSPHOROUS 3.2 mg/dL (2.5-4.9); POTASSIUM - SERUM 3.6 mmol/L (3.5-5.1); PROTEIN - SERUM 6.5 g/dL (6.4-8.2); SODIUM 134 mmol/L (136-145); UREA NITROGEN 12 mg/dL (7-18); eGFR NON AFRICAN AMERICAN > 90 mL/min (90-120)
[2019-05-14 08:11] LABS: A. FUMIGATUS #1 ABS Negative (Negative); PNEUM - A PULLULANS ABS Negative (Negative); PNEUM - MICROPOLY FAENI ABS Negative (Negative); PNEUM - PIGEON SERUM ABS Negative (Negative); PNEUM - THERMOA VULGARIS #1 Negative (Negative); PNEUM - THERMOACT SACCHARII Negative (Negative)
[2019-05-14 08:25] VITALS: BP 113/76
--- NOTE | 2019-05-14 11:13 | EC ---
PATIENT:MARTHA LEES SR DATE OF SERVICE: 05/07/19 SEX: M MEDICAL RECORD: [id number] DATE OF : [birth year] LOCATION:[facility] AGE OF PATIENT: 38 ADMISSION DATE: 05/07/19 REFERRING PHYSICIAN: INTERPRETING PHYSICIAN: DILMA SEALS MD ECHOCARDIOGRAM REPORT ECHO CHARGES 4 ECHO COMPLETE Date: 05/08/19 CLINICAL DIAGNOSIS: CHF ECHOCARDIOGRAPHIC MEASUREMENTS (adult normal given) AC root (d.<3.7cm) 3.1 cm LV Septum d (<1.2 cm> 1.3 cm Valve Excursion 2.4 cm LV Septum (systole) 1.7 cm Left Atria (s.<4.0cm> 3.3 cm LVPW d(<1.2cm) 1.2 cm RV (d.<2.3cm) 2.4 cm LVPW (sytole) 2.0 cm LV diastole(<5.6CM) 4.9 cm MV E-F(>70mm/sec) cm LV systole 2.4 cm LVOT Diameter 1.9 cm MV exc.(>10mm) cm Est.ejection fraction (50-75%) % DOPPLER: LVIT cm/sec A 45.0 cm/sec E 82.0 cm/sec LA cm/sec RVSP 30.0 mmHg LVOT 118 cm/sec AOP1/2T m/s Asc. Ao 144 cm/sec RVOT 58.0 cm/sec RA cm/sec PA 93.0 cm/sec AV Gradient Peak 8.3 mmHg AV Mean 3.6 mmHg AV Area 2.5 cm MV Gradient Peak 4.5 mmHg MV Mean 1.7 mmHg MV Area cm COMMENTS: Senior Radiation Therapist: Meena ESCOBAROE Tucking Machine Operator: 1 Dr. Seals TAPE# PACS Pericardial Effusion N DATE OF SERVICE: 05/08/2019 FINDINGS: 1. Left ventricular chamber size is within normal limits. Left ventricular systolic function is normal at 55% to 60%. 2. Left atrium, right atrium, and right ventricular chamber sizes are within normal limit. 3. Valvular structures have normal structure and motion. 4. Doppler interrogation reveals trace tricuspid regurgitation. No other valvular insufficiency or stenosis. Pulmonary systolic pressure is estimated at ECHOCARDIOGRAM REPORT [id number] MARTHA LEES SR 30 mmHg. 5. No evidence of pericardial effusion or left ventricular thrombus. TRANSINT:[id number] Voice Confirmation ID: [id number] DOCUMENT ID: [id number] DILMA SEALS MD at 1113 CC: [id number] DICTATION DATE: 05/09/19 1023 LOAD CHECKER: 05/09/19 1219 ADM IN [facility] [address] [place] [address]
[2019-05-14 11:59] VITALS: BP 118/83
--- NOTE | 2019-05-14 15:17 | NUR ---
PT RESTING IN BED. NO SIGNS OF DISTRESS. IV TO RIGHT FORARM PATENT NO REDNESS OR TENDERNESS. ON 6L NC. DENIES ANY PAIN OR NEED AT THIS TIME. CALL LIGHT IN REACH. BED LOW POSITION. NO FAMILY AT BEDSIDE AT THIS TIME.
[2019-05-14 16:32] VITALS: BP 109/74
--- NOTE | 2019-05-14 18:45 | NUR ---
I have reviewed this patient and I concur with the Shift Assessment completed by the Licensed Practical Nurse today this shift.
[2019-05-14 20:00] VITALS: BP 115/73
[2019-05-15] VITALS: BP 118/82
--- NOTE | 2019-05-15 02:31 | NUR ---
PT RESTING IN BED. ALERT AND ORIENTED. NO SIGNS OF DISTRESS. BREATHING EVEN AND UNLABORED. PT STATES NO PROBLEMS AT THIS TIME. IV SITE RT FA DRESSING CLEAN DRY AND INTACT. NO SIGNS OF INFECTION. SKIN CLEAN DRY AND INTACT. BOWEL SOUNDS. HIGH FLOW NASAL CANNULA 6L. WILL CONTINUE PLAN OF CARE. CALL LIGHT IN REACH. BED LOWERED AND LOCKED.
[2019-05-15 04:00] VITALS: BP 119/73
--- NOTE | 2019-05-15 04:38 | NUR ---
I have reviewed this patient and I concur with the Shift Assessment completed by the Licensed Practical Nurse today this shift.
[2019-05-15 06:58] LABS: BASOPHILS 0.1 % (0-2); EOSINOPHILS 0 % (0-7); HEMATOCRIT 33.7 % (42.0-54.0); HEMOGLOBIN 11.7 g/dL (13.5-17.5); IMMATURE GRANULOCYTES 6.2 % (0-5); MCHC 34.7 g/dL (31.0-37.0); MCV 83.6 fL (80.0-100.0); MEAN PLATELET VOLUME 9.6 fL (7.4-10.4); MONOCYTES 7.8 % (2-11); NEUTROPHILS 78.9 % (40-80); PLATELET COUNT 400 10x3/uL (130-400); RBC 4.03 10x6/uL (4.20-6.10); RDW 11.9 % (11.5-14.5)
[2019-05-15 07:03] LABS: WBC 13.8 10x3/uL (4.8-10.8)
[2019-05-15 07:21] LABS: ALBUMIN 2.1 g/dL (3.4-5.0); ALKALINE PHOSPHATASE 50 U/L (46-116); ALT (SGPT) 46 U/L (10-68); BILIRUBIN - TOTAL 0.27 mg/dL (0.2-1.3); CALC OSMOLALITY 266 mosm/kg (275-300); CALCIUM 8.3 mg/dL (8.5-10.1); CARBON DIOXIDE 22.2 mmol/L (21.0-32.0); CHLORIDE - SERUM 102 mmol/L (98-107); CREATININE - SERUM 0.7 mg/dL (0.6-1.3); GLUCOSE 104 mg/dL (74-106); MAGNESIUM - SERUM 2.2 mg/dL (1.8-2.4); PHOSPHOROUS 3.3 mg/dL (2.5-4.9); PROTEIN - SERUM 7.1 g/dL (6.4-8.2); SODIUM 134 mmol/L (136-145); UREA NITROGEN 9 mg/dL (7-18); eGFR NON AFRICAN AMERICAN > 90 mL/min (90-120)
[2019-05-15 08:58] VITALS: BP 109/79
--- NOTE | 2019-05-15 12:24 | NUR ---
PT IV IN RT FA INFILTRATED PT REQUEST THAT IV BE PLACED AFTER LUNCH, CONTINUE WITH PLAN OF CARE
[2019-05-15 12:32] VITALS: BP 114/73
[2019-05-15 14:08] LABS: BASOS 0 % (Not Estab.); CD4 - % CD4 POS. LYMPH 0.4 % (30.8-58.5); CD4 - ABSOLUTE CD4 HELPER 4 /uL (359-1519); EOS 0 % (Not Estab.); HEMATOCRIT 34.8 % (37.5-51.0); HEMOGLOBIN 11.4 g/dL (13.0-17.7); LYMPHS 5 % (Not Estab.); MCH 28.8 pg (26.6-33.0); MCHC 32.8 g/dL (31.5-35.7); MCV 88 fL (79-97); MONOCYTES 9 % (Not Estab.); MONOCYTES (ABSOLUTE) 1.7 x10E3/uL (0.1-0.9); NEUTROPHILS 83 % (Not Estab.); NEUTROPHILS (ABSOLUTE) 15.4 x10E3/uL (1.4-7.0); PLATELETS 412 x10E3/uL (150-450); RBC 3.96 x10E6/uL (4.14-5.80); RDW 12.4 % (12.3-15.4); WBC 18.6 x10E3/uL (3.4-10.8)
[2019-05-15 17:09] VITALS: BP 111/69
--- NOTE | 2019-05-15 18:45 | NUR ---
I have reviewed this patient and I concur with the Shift Assessment completed by the Licensed Practical Nurse today this shift.
--- NOTE | 2019-05-15 18:55 | NUR ---
I have reviewed this patient and I concur with the Shift Assessment completed by the Licensed Practical Nurse today this shift.
--- NOTE | 2019-05-15 19:40 | NUR ---
PT SITTING UP IN BED WITHOUT DISTRESS. ALERT AND ORIENTED. O2 7L/NC. IV RIGHT HAND INFUSING NS @ 125. PT HAVING SOME WEAKNESS IN LOWER EXT. UP WITH ASSIST. REFUSES SCDS. REQUESTED AND GIVEN ORANGE JUICE. DENIES OTHER NEEDS. CL IN REACH, WILL CTM
[2019-05-15 20:00] VITALS: BP 113/75
--- NOTE | 2019-05-15 20:30 | NUR ---
PT ATTEMPTED TO GET UP TO BATHROOM WITH ASSIST BUT STARTED TO GET SOB BEFORE GETTING OUT OF BED. PT STATES THIS HAS BEEN HAPPENING AND IT FEELS LIKE HE IS HAVING A PANIC ATTACK. WANTS TO SPEAK TO AUTOMATIC LINE SET UP MECHANIC IN AM ABOUT HIS ANXIETY, WILL PASS ALONG TO DAY NURSE.
[2019-05-16] VITALS: BP 114/73
--- NOTE | 2019-05-16 03:15 | NUR ---
PT SITTING UP IN BED WITHOUT DISTRESS, WATCHING VIDEOS ON CELLPHONE. DENIES NEEDS. CL IN REACH, WILL CTM
[2019-05-16 04:00] VITALS: BP 105/67
[2019-05-16 08:15] LABS: HEMATOCRIT 35.4 % (42.0-54.0); HEMOGLOBIN 12.4 g/dL (13.5-17.5); MCH 29.2 pg (26.0-34.0); MCV 83.3 fL (80.0-100.0); MEAN PLATELET VOLUME 9.5 fL (7.4-10.4); PLATELET COUNT 361 10x3/uL (130-400); RBC 4.25 10x6/uL (4.20-6.10); RDW 12.2 % (11.5-14.5); WBC 12.1 10x3/uL (4.8-10.8)
[2019-05-16 08:31] LABS: ALBUMIN 2.2 g/dL (3.4-5.0); ALKALINE PHOSPHATASE 52 U/L (46-116); ALT (SGPT) 42 U/L (10-68); BILIRUBIN - TOTAL 0.25 mg/dL (0.2-1.3); CALC OSMOLALITY 263 mosm/kg (275-300); CALCIUM 8.8 mg/dL (8.5-10.1); CARBON DIOXIDE 23.6 mmol/L (21.0-32.0); CHLORIDE - SERUM 101 mmol/L (98-107); CREATININE - SERUM 0.7 mg/dL (0.6-1.3); GLUCOSE 97 mg/dL (74-106); POTASSIUM - SERUM 4.1 mmol/L (3.5-5.1); PROTEIN - SERUM 7.2 g/dL (6.4-8.2); SODIUM 133 mmol/L (136-145); UREA NITROGEN 8 mg/dL (7-18); eGFR NON AFRICAN AMERICAN > 90 mL/min (90-120)
[2019-05-16 09:15] VITALS: BP 111/72
--- NOTE | 2019-05-16 10:20 | NUR ---
PT LYING IN BED, HAS REQUESTED TO HAVE A SHOWER TODAY AFTER PT GETSHIM UP, PT EEDS TO HAVE A BM BUT IS SCARED TO GO TO RESTROOM DUE TO FEAR OF NOT BEING ABLE TO BREATHE, EXPLAINED TO PT THAT HIS O2 TUBING WILL REACH INTO THE RESTROOM AND PT STILL GETS ANXIOUS THINKING ABOUT IT. RAPID HR, SWEATS AND STARTS TO HAVE PAIN IN CHEST, ADVISED PT TO SPEAK TO DR IN REGARDS TO POSSIBLE MEDICATION THAT WILL HELP HIM RELAX, CL IN REACH BED IN LOWEST POSITION, CONTINUE WITH PLAN OF CARE
[2019-05-16 11:28] LABS: PLATELET ESTIMATE NORMAL; PLATELET MORPHOLOGY PLT CLUMPS PRESENT
[2019-05-16 11:32] LABS: LYMPHOCYTES 10 % (15-50); MONOCYTES 7 % (2-11); NEUTROPHILS 81 % (40-80)
[2019-05-16 11:39] LABS: BASOPHILS 0 % (0-2); EOSINOPHILS 0 % (0-7)
[2019-05-16 13:10] VITALS: BP 102/68
--- NOTE | 2019-05-16 14:25 | NUR ---
PT TRIED TO GET UP WITH RT AND PT AND BECAME VERY ANXIOUS WHERE O2 DROPPED TO THE 80'S. PT CAME AND TOLD ME THAT RT ASKED THAT PT STOP DUE TO PT UNABLE TO BREATHE AND ANXIETY. PT SPOKE TO DR ZULUAGA ABOUT HIS ATTACKS BUT DID NOT FEEL LIKE HE NEEDED MEDICATION FOR IT AT THE TIME, MAY RECONSIDER. CL IN REACH CONTINUE WITH PLAN OF CARE
[2019-05-16 16:22] VITALS: BP 104/66
--- NOTE | 2019-05-16 18:00 | NUR ---
I have reviewed this patient and I concur with the Shift Assessment completed by the Licensed Practical Nurse today this shift.
--- NOTE | 2019-05-16 19:15 | NUR ---
PT ALERT AND ORIENTED. HOB ELEVARED TO 45 DEGREE ANGLE. HAS LEFT HAND IV THAT IS INFUSING NS @ 125. WEARING 7 L HIGH FLOW CANNULA. PATIENT REFUSES TO GET OUT OF BED. SPOKE WITH PATIENT ABOUT CONCERNS. PT STATES THE LAST FEW TIMES HES TRIED TO GET UP "HAVEN'T BEEN GOOD AND IT MAKES IT HARD TO BREATHE." HAS LUNGS ARE SLIGHTLY DIMINISHED IN LOWER LOBERS. BILATERAL UPPER LOBES CLEAR TO AUSCULTATION. DENIES FURTHER ISSUES AT THIS TIME. HAS CALL LIGHT IN REACH. CPOC.
[2019-05-16 20:00] VITALS: BP 107/69
[2019-05-17] VITALS: BP 110/74
--- NOTE | 2019-05-17 03:52 | NUR ---
I have reviewed this patient and I concur with the Shift Assessment completed by the Licensed Practical Nurse today this shift.
[2019-05-17 04:00] VITALS: BP 117/76
--- NOTE | 2019-05-17 06:19 | NUR ---
PT RT HAND IV INFILTRATED. SEVERAL UNSUCCESSFUL ATTEMPTS BY DIFFERENT NURSES.
[2019-05-17 06:24] LABS: BASOPHILS 0.2 % (0-2); EOSINOPHILS 0.6 % (0-7); HEMATOCRIT 36.4 % (42.0-54.0); HEMOGLOBIN 12.9 g/dL (13.5-17.5); IMMATURE GRANULOCYTES 7.8 % (0-5); MCH 29.7 pg (26.0-34.0); MCHC 35.4 g/dL (31.0-37.0); MCV 83.9 fL (80.0-100.0); MEAN PLATELET VOLUME 10.2 fL (7.4-10.4); MONOCYTES 7.1 % (2-11); NEUTROPHILS 76.3 % (40-80); PLATELET COUNT 399 10x3/uL (130-400); RBC 4.34 10x6/uL (4.20-6.10); RDW 12.5 % (11.5-14.5); WBC 15.6 10x3/uL (4.8-10.8)
[2019-05-17 07:04] LABS: ALBUMIN 2.2 g/dL (3.4-5.0); ALKALINE PHOSPHATASE 50 U/L (46-116); ALT (SGPT) 44 U/L (10-68); BILIRUBIN - TOTAL 0.27 mg/dL (0.2-1.3); CALC OSMOLALITY 263 mosm/kg (275-300); CALCIUM 8.8 mg/dL (8.5-10.1); CARBON DIOXIDE 23.5 mmol/L (21.0-32.0); CHLORIDE - SERUM 100 mmol/L (98-107); CREATININE - SERUM 0.6 mg/dL (0.6-1.3); GLUCOSE 102 mg/dL (74-106); POTASSIUM - SERUM 4.6 mmol/L (3.5-5.1); PROTEIN - SERUM 7.4 g/dL (6.4-8.2); SODIUM 133 mmol/L (136-145); UREA NITROGEN 8 mg/dL (7-18); eGFR NON AFRICAN AMERICAN > 90 mL/min (90-120)
--- NOTE | 2019-05-17 07:15 | NUR ---
PATIETN RESTING IN BED WITH NO NEEDS VOICED. NOTIFIED MADISON ANAND THAT PATIENT WILL REQUIRE MIDLINE PLACENT DUE TO UNABLE TO START AN IV.
[2019-05-17 08:46] VITALS: BP 108/72
[2019-05-17 12:08] VITALS: BP 133/72
--- NOTE | 2019-05-17 12:16 | MORECARE ---
CASE MANAGEMENT DISCHARGE SUMMARY PATIENT: MARTHA LEES UNIT: [id number] ADM DATE: 05/07/19 AGE: 38 : 80 SEX: M ROOM/BED: D.2214 AUTHOR: SALINA,DOC PHYSICIAN: REFERRING PHYSICIAN: JUAN ZULUAGA MD DATE OF SERVICE: 05/17/19 Discharge Plan Patient Name: MARTHA LEES Facility: [facility]:[place] : 1980 Planned Disposition: Home Anticipated Discharge Date: Discharge Date: Expected LOS: Initial Reviewer: [email or web address] Initial Review Date: 05/11/2019 Generated: 05/17/19 1:15 pm Comments DCP- Discharge Planning Updated by [email or web address]: Yary Thrasher on 05/17/19 11:[address] Patient is going to be Transferred to [facility], Patient is agreeable, Transfer back form signed and faxed to [facility] Admit. Patient stated that he has called his mother and let her know. We are still awaiting a MD and bed. House Sup (Maggi) aware. CM to follow and assist as needed DCP- Discharge Planning Updated by [email or web address]: Winter Martinez on 05/11/19 4:[address] Patient Name: MARTHA LEES Admission Status: ER Accout number: [id number] Admission Date: 05-07-2019 : 1980 Admission Diagnosis: Attending: UJAN ZULUAGA Current LOS: 4 Anticipated DC Date: Planned Disposition: Home Primary Insurance: MEDICAID [place] PENDING Discharge Planning Comments: CM met with patient and his mother (Parag) at bedside after explaining CM role and obtaining verbal consent. Patient lives at home with his mother and plans to return there upon discharge. Patient feels this would be a safe discharge. CM discussed availability / needs of home health and medical equipment. Patient denies any discharge needs at this time. Patient states he will have his family drive him home upon discharge. CM will continue to follow and assist as needed with discharge planning / needs. Eligibility And Occupancy Interviewer: Winter Martinez DCPIA - Discharge Planning Initial Assessment Updated by [email or web address]: Winter Martinez on 05/11/19 5:45 pm * Is the patient Alert and Oriented? Yes * How many steps to enter\exit or inside your home? * PCP NO PCP * Pharmacy [facility] * Preadmission Environment Home with Family * ADLs Independent * Equipment None * List name and contact numbers for known caregivers / representatives who currently or will assist patient after discharge: PARAG LEES - [phone] * Verbal permission to speak to the caregivers and representatives has been obtained from the patient. Yes * Community resources currently utilized None * Additional services required to return to the preadmission environment? No * Can the patient safely return to the preadmission environment? Yes * Has this patient been hospitalized within the prior 30 days at any hospital? No Last DP export: 05/11/19 4:49 p Patient Name: MARTHA LEES Page [phone] at 1216 All edits/amendments must be made on the electronic document DICTATION DATE: 05/17/19 1215 VRT MECHANIC: CYNTHIA 05/17/19 1215 RPT#: [id number] DC DATE: STATUS: ADM IN [facility] [address] [place] [address] END OF REPORT
--- NOTE | 2019-05-17 14:28 | MORECARE ---
CASE MANAGEMENT DISCHARGE SUMMARY PATIENT: MARTHA LEES UNIT: [id number] ADM DATE: 05/07/19 AGE: 38 : 80 SEX: M ROOM/BED: D.2214 AUTHOR: SALINA,DOC PHYSICIAN: REFERRING PHYSICIAN: JUAN ZULUAGA MD DATE OF SERVICE: 05/17/19 Discharge Plan Patient Name: MARTHA LEES Facility: [facility]:[place] : 1980 Planned Disposition: Home Anticipated Discharge Date: Discharge Date: Expected LOS: Initial Reviewer: [email or web address] Initial Review Date: 05/11/2019 Generated: 05/17/19 3:28 pm Comments DCP- Discharge Planning Updated by [email or web address]: Yary Thrasher on 05/17/19 1:[address] SPOKE WITH CARMINE AT THE TRANSFER CENTER AND HE STATED THAT WE WERE JUST WAITING ON A BED, THE ACCEPTING MD IS DR LANG DCP- Discharge Planning Updated by [email or web address]: Yary Thrasher on 05/17/19 11:[address] Patient is going to be Transferred to [facility], Patient is agreeable, Transfer back form signed and faxed to [facility]. Patient stated that he has called his mother and let her know. We are still awaiting a MD and bed. House Sup (Maggi) aware. CM to follow and assist as needed DCP- Discharge Planning Updated by [id number]: Winter Martinez on 05/11/19 4:[address] Patient Name: MARTHA LEES Admission Status: ER Accout number: [id number] Admission Date: 05-07-2019 : 1980 Admission Diagnosis: Attending: JUAN ZULUAGA Current LOS: 4 Anticipated DC Date: Planned Disposition: Home Primary Insurance: MEDICAID [place] PENDING Discharge Planning Comments: CM met with patient and his mother (Parag) at bedside after explaining CM role and obtaining verbal consent. Patient lives at home with his mother and plans to return there upon discharge. Patient feels this would be a safe discharge. CM discussed availability / needs of home health and medical equipment. Patient denies any discharge needs at this time. Patient states he will have his family drive him home upon discharge. CM will continue to follow and assist as needed with discharge planning / needs. Brim Rounder: Winter Martinez DCPIA - Discharge Planning Initial Assessment Updated by [email or web address]: Winter Martinez on 05/11/19 5:45 pm * Is the patient Alert and Oriented? Yes * How many steps to enter\exit or inside your home? * PCP NO PCP * Pharmacy [facility] * Preadmission Environment Home with Family * ADLs Independent * Equipment None * List name and contact numbers for known caregivers / representatives who currently or will assist patient after discharge: PARAG LEES - [phone] * Verbal permission to speak to the caregivers and representatives has been obtained from the patient. Yes * Community resources currently utilized None * Additional services required to return to the preadmission environment? No * Can the patient safely return to the preadmission environment? Yes * Has this patient been hospitalized within the prior 30 days at any hospital? No Last DP export: 05/17/19 11:16 a Patient Name: MARTHA LEES Page [id number] at 1428 All edits/amendments must be made on the electronic document DICTATION DATE: 05/17/191426 STRATEGY ASSOCIATE: CYNTHIA 05/17/191426 RPT#: [id number] UT DATE: STATUS: ADM IN [facility] [address] [place] [address] END OF REPORT
--- NOTE | 2019-05-17 19:35 | NUR ---
PT SITTING UP IN CHAIR. ALERT AND ORIENTED. NO SIGNS OF DISTRESS. BREATHING EVEN AND SHALLOW. PT STATES NO PROBLEMS AT THIS TIME. IV SITE RT HAND DRESSING CLEAN DRY AND INTACT. NO SIGNS OF INFECTION. BOWEL SOUNDS ACTIVE. LUNG SOUNDS DIMINISHED. WILL CONTINUE PLAN OF CARE. CALL LIGHT IN REACH. BED LOWERED AND LOCKED.
[2019-05-17 20:00] VITALS: BP 113/73
[2019-05-18] VITALS: BP 110/75
--- NOTE | 2019-05-18 00:24 | NUR ---
I have reviewed this patient and I concur with the Shift Assessment completed by the Licensed Practical Nurse today this shift.
--- NOTE | 2019-05-18 00:56 | NUR ---
EMS ARRIVED. PT ALERT AND ORIENTED. PT STATES NO PROBLEMS AT THIS TIME. IV STILL INTACT. MASK ON PT. O2 8L ON.
[2019-05-18 15:10] LABS: FUNGUS MYCOLOGY CULTURE Preliminary report (())
[2019-05-19 05:09] LABS: IMMUNOGLOBULIN E 2733 IU/mL (6-495)
--- NOTE | 2019-05-19 12:27 | MORECARE ---
CASE MANAGEMENT DISCHARGE SUMMARY PATIENT: MARTHA LEES UNIT: [id number] ADM DATE: 05/07/19 AGE: 38 : 80 SEX: M ROOM/BED: D.2214 AUTHOR: SALINADOC PHYSICIAN: REFERRING PHYSICIAN: JUAN ZULUAGA MD DATE OF SERVICE: 05/19/19 Discharge Plan Patient Name: MARTHA LEES Facility: [facility]:[place] : 1980 Planned Disposition: Home Anticipated Discharge Date: Discharge Date: 05/18/2019 Expected LOS: 0 Initial Reviewer: [email or web address] Initial Review Date: 05/11/2019 Generated: 05/19/19 1:27 pm Comments DCP- Discharge Planning Updated by [email or web address]: Yary Thrasher on 05/17/19 1:[address] SPOKE WITH CARMINE AT THE TRANSFER C[facility] AND HE STATED THAT WE WERE JUST WAITING ON A BED, THE ACCEPTING MD IS DR LANG DCP- Discharge Planning Updated by [email or web address]: Yary Thrasher on 05/17/19 11:[address] Patient is going to be Transferred to [facility], Patient is agreeable, Transfer back form signed and faxed to [facility]. Patient stated that he has called his mother and let her know. We are still awaiting a MD and bed. House Sup (Maggi) aware. CM to follow and assist as needed DCP- Discharge Planning Updated by [email or web address]: Winter Martinez on 05/11/19 4:[address] Patient Name: MARTHA LEES Admission Status: ER Accout number: [id number] Admission Date: 05-07-2019 : 1980 Admission Diagnosis: Attending: JUAN ZULUAGA Current LOS: 4 Anticipated DC Date: Planned Disposition: Home Primary Insurance: MEDICAID [place] PENDING Discharge Planning Comments: CM met with patient and his mother (Parag) at bedside after explaining CM role and obtaining verbal consent. Patient lives at home with his mother and plans to return there upon discharge. Patient feels this would be a safe discharge. CM discussed availability / needs of home health and medical equipment. Patient denies any discharge needs at this time. Patient states he will have his family drive him home upon discharge. CM will continue to follow and assist as needed with discharge planning / needs. Varnisher: Winter Martinez DCPIA - Discharge Planning Initial Assessment Updated by [email or web address]: Winter Martinez on 05/11/19 5:45 pm * Is the patient Alert and Oriented? Yes * How many steps to enter\exit or inside your home? * PCP NO PCP * Pharmacy [facility] * Preadmission Environment Home with Family * ADLs Independent * Equipment None * List name and contact numbers for known caregivers / representatives who currently or will assist patient after discharge: PARAG LEES - [phone] * Verbal permission to speak to the caregivers and representatives has been obtained from the patient. Yes * Community resources currently utilized None * Additional services required to return to the preadmission environment? No * Can the patient safely return to the preadmission environment? Yes * Has this patient been hospitalized within the prior 30 days at any hospital? No Last DP export: 05/17/19 1:28 p Patient Name: MARTHA LEES Page [id number] at 1227 All edits/amendments must be made on the electronic document DICTATION DATE: 05/19/19 1226 ELECTRIC MOTOR TESTER: CYNTHIA 05/19/19 1226 RPT#: [id number] DC DATE:05/18/19 STATUS: DIS IN [facility] [address] [place] [address] END OF REPORT
[2019-05-19 18:08] LABS: ANGIOTENSIN CONVERTING ENZYME 69 U/L (14-82)
[2019-05-19 22:06] LABS: MYCOPLASMA PNEUMO IGG 193 U/mL (0-99)
[2019-05-20 10:11] LABS: VIRAL - RESULT Final report (()); VIRAL - RESULT No virus isolated. (())
== END 2019-05-18 00:59 | disposition short-term general hospital (02) | DRG 974 ==
LOC: D.ER 19:18 → D.ICU 21:04 → D.M2 21:04 → D.ICU 05-11 18:08 → D.MS 05-13 15:09
PROVIDERS: Emergency Medicine; Family Medicine; Internal Medicine Pulmonary Disease; ADMIT Internal Medicine Nephrology; ATTEND Internal Medicine Nephrology
PROC: 0B9C8ZX Drainage of Right Upper Lung Lobe, Via Natural or Artificial Opening Endoscopic, Diagnostic (ICD-10-PCS; 2019-05-11)
PROC: 0BBB8ZZ Excision of Left Lower Lobe Bronchus, Via Natural or Artificial Opening Endoscopic (ICD-10-PCS; 2019-05-11)
PROC: 0B9J8ZX Drainage of Left Lower Lung Lobe, Via Natural or Artificial Opening Endoscopic, Diagnostic (ICD-10-PCS; 2019-05-11)
PROC: 0B9G8ZX Drainage of Left Upper Lung Lobe, Via Natural or Artificial Opening Endoscopic, Diagnostic (ICD-10-PCS; principal; 2019-05-11 10:17)
DX: B20 Human immunodeficiency virus [HIV] disease (principal); A41.9 Sepsis, unspecified organism; J96.01 Acute respiratory failure with hypoxia; J18.9 Pneumonia, unspecified organism; B59 Pneumocystosis; F17.203 Nicotine dependence unspecified, with withdrawal; E44.1 Mild protein-calorie malnutrition; D50.9 Iron deficiency anemia, unspecified; R59.1 Generalized enlarged lymph nodes; R63.4 Abnormal weight loss; R05 Cough; J30.9 Allergic rhinitis, unspecified